=== PATIENT | female | born 2000 | race Caucasian/White ===

== ENCOUNTER 2023-10-18 22:27 | Emergency (ER) | payer SELFPAY ==
[2023-10-18 22:34] VITALS: BP 107/68
[2023-10-19] MEDS: DELTASONE 50 MG PO (00:09)
[2023-10-19] MEDS: BENADRYL 50 MG PO (00:09)
[2023-10-19] MEDS: PEPCID 20 MG PO (00:09)
--- NOTE | 2023-10-19 00:11 | ED.GENMED ---
History of Present Illness
General
Chief Complaint: Skin Problem
Source: patient
Exam Limitations: none
Time Seen by Provider: 10/18/23 23:12
Travel History
Have you had any contact with someone who has COVID-19?: No
Do you have any symptoms of coronavirus? Fever > 100 degrees, chills, cough, shortness of breath, sore throat, loss of taste or smell, muscle aches, or headache?: No
History of Present Illness
History of Present Illness:
Patient with hives x 2 to 3 days. Started Medrol Dosepak. Has not been on regular antihistamines. No obvious precipitating event. Had some mild shortness of breath 2 days ago that is resolved. Started cephalexin per urgent care yesterday.
Past History
Past History
ED Past Medical History: None
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
Social History
Tobacco: Non-smoker
Alcohol: None
Drug: None
Review of Systems
Review of Systems
All Other Systems: Not applicable
Constitutional: Denies fever
Respiratory: Denies cough
Phy Exam
Physical Exam
Physical Exam:
GENERAL: Alert and oriented in no apparent distress
EYE: Orbits normal.
NECK: Supple, no swelling
ENT: Pharynx without erythema. No drooling or stridor. Speech normal
CARDIAC: Regular rate and rhythm without any obvious murmurs.
LUNGS: Clear breath sounds,normal
ABDOMEN: Soft, without focal tenderness or distention
NEUROLOGICAL: Alert and oriented , grossly non-focal
SKIN: Warm and dry, large hives of the back chest and arms.
MUSCULOSKELETAL: No edema,no deformity.Good color
PSYCH: Normal and appropriate interaction.
Course
Orders/Labs/Results
Orders:
Orders
10/18/23 23:48
Diphenhydramine [Benadryl] 50 mg PO NOW STA
Famotidine [Pepcid] 20 mg PO NOW STA
Prednisone [Deltasone] 50 mg PO NOW STA
Vital Signs
Initial and Last Documented VS:
Initial Vital Signs
Temp Pulse Resp BP Pulse Ox
98.9 F 86 18 107/68 99
10/18/23 22:34 10/18/23 22:34 10/18/23 22:34 10/18/23 22:34 10/18/23 22:34
Last Documented Vital Signs
Temp Pulse Resp BP Pulse Ox
98.9 F 86 18 107/68 99
10/18/23 22:34 10/18/23 22:34 10/18/23 22:34 10/18/23 22:34 10/18/23 22:34
*Critical Care Note
Total Time (30-74mins, 75-104mins- exclusive of procedures): Not Applicable
Update Note
Update Note:
Patient needs H1 and H2 blockers and steroids. Has been on a low-dose of steroids has not been taking H1 blockers. No indication for antibiotics at this time
ED Attending Note
-
Portions of this chart may have been created with voice recognition software.� Occasional wrong word or��sound alike� substitutions may have occurred due to the inherent limitations of voice recognition software.
Discharge Plan
Departure
Patient Disposition: Home (Routine Discharge)
Date of Disposition: 10/19/23
Time of Disposition: 00:13
Patient with high blood pressure during this ER visit?: No
Discharge Problem:
Hives
Instructions: Hives, Allergic Reaction ED
Prescriptions:
New
prednisone 10 mg tablet
10 mg PO DAILY Qty: 20 0RF
Rx Instructions:
4 tablets day 1. Then 1 less tablet every other day until gone
Referrals:
[facility] [Provider Group] - Next open appointment
NONE,* [Family Provider] -
Activity Restrictions/Additional Instructions:
Take a Claritin a day for the next week
Take a Pepcid a day for the next week
Prednisone taper as directed
No reason to take the antibiotic at this time
Recheck with increased or persistent hives wheezing shortness of breath fever or any other concerning symptoms
Interventions
Interventions:
*Risk Screen - Suicide Last Done: 10/18/23 23:23
*General Assessment Last Done: 10/18/23 22:34
*Neglect/Abuse Screening Last Done: 10/18/23 23:23
ED- Fall Risk Assessment Last Done: 10/18/23 23:24
*ED COVID-19 Vaccine History Last Done: 10/18/23 23:23
*Nursing Disposition Last Done: 10/19/23 00:22
ED-Skin Assessment Last Done: 10/18/23 23:22
Discharge Date and Time
Discharge Date/Time: 10/19/23 00:24
Print Language: [id number]
== END 2023-10-19 00:24 | disposition home or self-care (01) ==
LOC: EMR 22:27
PROVIDERS: EMERGENCY PHYSICIAN Emergency Medicine
DX: L50.9 Urticaria, unspecified (principal)
CPT/HCPCS: 99282

== ENCOUNTER 2024-03-06 20:39 | Emergency (ER) | payer OTHER, SELFPAY ==
[2024-03-06 20:44] VITALS: BP 146/92
[2024-03-06 21:12] LABS: % Basophils 0.4 % (0-2); % Eosinophils 4.8 % (0-6); % Immature Granulocytes 0.5 % (0-0.5); % Lymphocytes 24.2 % (20.5-51.1); % Monocytes 9.5 % (1.7-9.3); % Neutrophils 60.6 % (42.2-75.2); Absolute Eosinophils 0.4 10^3/uL (0-0.7); Absolute Lymphocytes 2.1 10^3/uL (1.2-3.4); Absolute Monocytes 0.8 10^3/uL (0.1-0.6); Absolute Neutrophils 5.2 10^3/uL (1.4-6.5); Hematocrit 31.9 % (37.0-47.0); Hemoglobin 11.7 g/dL (12.0-16.0); Mean Corp Hgb Conc. 36.7 g/dL (33.0-37.0); Mean Corpuscular Volume 79.2 fL (81.0-99.0); Mean Platelet Volume 10.7 fL (7.4-10.4); Nucleated Red Blood Cells % 0 %; Platelet Count 242 10^3/uL (130-400); Red Blood Cell Count 4.03 10^6/uL (4.20-5.40); Red Cell Dist. Width 13.2 % (11.5-14.5); Urine Albumin Negative (Neg - Trace); Urine Bilirubin Negative (Negative); Urine Character Clear (Clear); Urine Color Yellow; Urine Glucose Negative (Negative); Urine Ketone Negative (Negative); Urine Leukocyte Negative (Negative); Urine Nitrite Negative (Negative); Urine Occult Blood Negative (Negative); Urine Urobilinogen Negative (Neg - 1+); White Blood Cell Count 8.5 10^3/uL (4.8-10.8)
[2024-03-06 21:54] LABS: ALT (SGPT) 20 U/L (0-35); AST (SGOT) 20 U/L (14-36); Albumin 4.3 g/dl (3.5-5.0); Alkaline Phosphatase 69 U/L (38-126); Blood Urea Nitrogen 7 mg/dl (7-17); Calcium 9.5 mg/dl (8.4-10.2); Carbon Dioxide 22 mmol/L (22-30); Chloride 103 mmol/L (98-107); Glucose 72 mg/dl (70-99); Lipase 84 U/L (23-300); Potassium 4.1 mmol/L (3.5-5.1); Sodium 139 mmol/L (135-145); Total Bilirubin 0.3 mg/dl (0.2-1.3); Total Protein 7.2 g/dl (6.3-8.2); eGFR > 60.00
--- NOTE | 2024-03-07 00:20 | ED.GENMED ---
History of Present Illness
<ANÍBAL Monet - Last Filed: 03/07/24 04:34>
General
Chief Complaint: Fever
Time Seen by Provider: 03/07/24 00:19
History of Present Illness
History of Present Illness:
A 23-year-old G1, P0 who is 11 weeks 6 days gestation and no past medical history presents to the emergency department for fever x 2 days. She states that on Monday she initially began to feel sick with fever, nasal congestion, nausea which is
improving, Cough, and intermittent vomiting. She also admits to a headache which was localized to her forehead and has been improving. She denies taking any medications to improve the fever or symptoms. She states her maximum temperature was on
Monday with a Tmax of 101 Fahrenheit. She is currently afebrile. She denies any dysuria, urinary frequency, urgency, flank pain, abdominal pain, diarrhea, vaginal bleeding.
She has no past medical history. She has a family history of hypothyroidism and diabetes. She is currently taking no medications. She is following up with [facility] with Dr. Xiang Olivarez.
Past History
<ANÍBAL Monet - Last Filed: 03/07/24 04:34>
Past History
ED Past Medical History: None
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
Social History
Tobacco: Non-smoker
Alcohol: None
Drug: None
Review of Systems
<ANÍBAL Monet - Last Filed: 03/07/24 04:34>
Review of Systems
Allergies reviewed?: Yes
All Other Systems: ROS reviewed and negative except as documented in HPI and ROS
Phy Exam
<ANÍBAL Monet - Last Filed: 03/07/24 04:34>
General Physical Exam
General Presentation: well appearing and no apparent distress
General age: appears stated age
General Skin: warm
General Habitus: normal and obese
General Mental: alert
General Hydration: appears well hydrated
ENT Exam
ENT Exam: TM's normal, pharynx normal and neck supple
Additional ENT: No lymphadenopathy noted.
Eye Exam
Eye Exam: PERRL
Cardiovascular Exam
Cardiovascular Exam: regular rate/rhythm, no edema, no gallop, no murmur and normal peripheral pulses
Pulmonary Exam
Pulmonary Exam: lungs clear, no respiratory distress, no rales, no crackles, no rhonchi and no wheezing
Gastrointestinal Exam
Gastrointestinal Exam: normal bowel sounds, non tender, soft and non distended
Neurological Exam
Neurological Exam: alert and oriented x3
Musculoskeletal Exam
Musculoskeletal Exam: full ROM
Skin Exam
Skin Exam: normal color and warm/dry
Psychiatric Exam
Psychiatric Exam: normal mood/affect
Course
<Pancho Grider, [facility] - Last Filed: 03/07/24 04:34>
Orders/Labs/Results
Orders:
Orders
03/06/24 21:02
Complete Blood Count/With Diff Urgent
Comprehensive Metabolic Panel Urgent
HCG, Beta Quantitative [Beta HCG Quantitative] Stat
Is this a screen?: No
Lipase Urgent
Urinalysis Reflex To Culture Urgent
Date Specimen was Collected: 03/06/24
Time Specimen was Collected: 20:48
03/07/24 00:41
COVID-19 Antigen Urgent
Source: Nasal Swab
Influenza A+B Rapid Molecular Urgent
MAGY Source: Nasal Swab
Specimen Description:
Abnormal Lab Results
03/06/24
21:02
RBC 4.03 L 10^6/uL
(4.20-5.40)
Hgb 11.7 L g/dL
(12.0-16.0)
Hct 31.9 L %
(37.0-47.0)
MCV 79.2 L fL
(81.0-99.0)
MPV 10.7 H fL
(7.4-10.4)
Absolute Monos (auto) 0.8 H 10^3/uL
(0.1-0.6)
Monocytes % 9.5 H %
(1.7-9.3)
Creatinine 0.5 L mg/dL
(0.6-1.0)
03/06/24 21:02
03/06/24 21:02
Vital Signs
Initial and Last Documented VS:
Initial Vital Signs
Temp Pulse Resp BP Pulse Ox
98.3 F 88 16 146/92 100
03/06/24 20:44 03/06/24 20:44 03/06/24 20:44 03/06/24 20:44 03/06/24 20:44
Last Documented Vital Signs
Temp Pulse Resp BP Pulse Ox
98.5 F 95 18 131/71 98
03/07/24 00:43 03/07/24 00:43 03/07/24 00:43 03/07/24 00:43 03/07/24 00:43
<Nida Valdez, DO - Last Filed: 03/07/24 01:36>
Orders/Labs/Results
Orders:
Orders
03/06/24 21:02
Complete Blood Count/With Diff Urgent
Comprehensive Metabolic Panel Urgent
HCG, Beta Quantitative [Beta HCG Quantitative] Stat
Is this a screen?: No
Lipase Urgent
Urinalysis Reflex To Culture Urgent
Date Specimen was Collected: 03/06/24
Time Specimen was Collected: 20:48
03/07/24 00:41
COVID-19 Antigen Urgent
Source: Nasal Swab
Influenza A+B Rapid Molecular Urgent
MAGY Source: Nasal Swab
Specimen Description:
Abnormal Lab Results
03/06/24
21:02
RBC 4.03 L 10^6/uL
(4.20-5.40)
Hgb 11.7 L g/dL
(12.0-16.0)
Hct 31.9 L %
(37.0-47.0)
MCV 79.2 L fL
(81.0-99.0)
MPV 10.7 H fL
(7.4-10.4)
Absolute Monos (auto) 0.8 H 10^3/uL
(0.1-0.6)
Monocytes % 9.5 H %
(1.7-9.3)
Creatinine 0.5 L mg/dL
(0.6-1.0)
03/06/24 21:02
03/06/24 21:02
Vital Signs
Initial and Last Documented VS:
Initial Vital Signs
Temp Pulse Resp BP Pulse Ox
98.3 F 88 16 146/92 100
03/06/24 20:44 03/06/24 20:44 03/06/24 20:44 03/06/24 20:44 03/06/24 20:44
Last Documented Vital Signs
Temp Pulse Resp BP Pulse Ox
98.5 F 95 18 131/71 98
03/07/24 00:43 03/07/24 00:43 03/07/24 00:43 03/07/24 00:43 03/07/24 00:43
<Pancho Grider [facility] - Last Filed: 03/07/24 04:34>
MDM/Problems Addressed
Differential Diagnosis Includes:
Unspecified viral syndrome, COVID-19, influenza A/B,
MDM/Problems Addressed:
Most likely etiology of her symptoms are due to an upper respiratory infection due to an unspecified virus. Rapid COVID, flu A/B are both negative.
<Nida Valdez DO - Last Filed: 03/07/24 01:36>
*Pulse Oximetry
Patient hypoxic: no
*Critical Care Note
Total Time (30-74mins, 75-104mins- exclusive of procedures): Not Applicable
ED Attending Note
<ANÍBAL Monet - Last Filed: 03/07/24 04:34>
-
Portions of this chart may have been created with voice recognition software.� Occasional wrong word or��sound alike� substitutions may have occurred due to the inherent limitations of voice recognition software.
<Nida Valdez DO - Last Filed: 03/07/24 01:36>
ED Attending Note
Patient seen and examined by attending physician: Yes
I performed the substantive portion of visit, reviewed & personally made and approve the management plan that is documented in note by myself or LYDIA.: Yes
ED Attending Note:
This is a 23-year-old female with no significant past medical history, 1 para 0, currently 12 weeks who presents with URI symptoms that initially began 2-1/2 days ago. She reports cough, nasal congestion, fever, sore throat,
headache. Tmax 3 days ago of 100.4 �F. Headache and sore throat has improved/resolved. She continues with moderate nasal congestion and was concerned today when she had a few episodes of vomiting.
She has been attempting to keep up with her fluids. She denies chest pain, no shortness of breath, no abdominal pain nor back pain, no diarrhea. She has had no vaginal discharge nor bleeding. No dysuria and urgency nor hematuria.
She has not been taking anything for her symptoms.
No recent travel.
No known close contacts with similar symptoms.
She was plan to have influenza vaccine today, March 07.
GENERAL: 23-year-old female appears her stated age, bright and alert, pleasant, appears in no acute distress. Exhibits a mildly nasal, stuffy voice. Respirations are easy and nonlabored. No significant cough appreciated during exam. She is
afebrile.
EYE: pupils equal and reactive. anicteric
NECK: Supple, nontender, no meningismus, no significant adenopathy.
ENT: posterior pharynx is without injection or edema, scant clear postnasal drip is noted, oral mucosa is moist. TM clear b/l, nares have mildly boggy pale blue turbinates with scant clear rhinorrhea.
CARDIAC: Regular rate and rhythm. no murmur.
LUNGS: Clear breath sounds bilaterally, no acute respiratory distress, no wheezes/rales/rhonchi
ABDOMEN: Soft, nondistended, without focal tenderness, no r/g, no cvat. normoactive BS.
NEUROLOGICAL: Alert and oriented x3, no focal neuro deficits. Gait is delong and steady.
SKIN: Warm and dry, normal color, skin intact. No rash.
MUSCULOSKELETAL: No C/C/E. peripheral pulses are full and equal b/l. No palpable tenderness.
PSYCH: Normal and appropriate interaction.
Patient exam consistent with URI that I suspect is viral.
Reports few episodes of vomiting but tolerating oral fluids and has had no accompanying abdominal pain.
Labs are reassuring, no evidence of dehydration or electrolyte abnormality.
Urinalysis is unremarkable, no evidence of UTI.
Will check COVID and influenza.
I highly suspect viral URI and overall symptoms appear to be improving as she is currently afebrile since arrival to the ED.
Recommend supportive measures, staying well-hydrated on a daily basis. May take Tylenol as needed for fever, aches.
Prompt follow-up with PCP for recheck.
Recommend holding off on influenza vaccination until fever free for a full 48 hours.
Discharge Plan
Departure
Patient Disposition: Home (Routine Discharge)
Date of Disposition: 03/07/24
Time of Disposition: 01:30
Patient with high blood pressure during this ER visit?: No
Condition: Good
Discharge Problem:
Acute upper respiratory infection
Instructions: Acute Nausea and Vomiting, Upper Respiratory Infection - Adult
Prescriptions:
No Action
prednisone 10 mg tablet
10 mg PO DAILY Qty: 20 0RF
Rx Instructions:
4 tablets day 1. Then 1 less tablet every other day until gone
Referrals:
Kike Parikh MD [Family Provider] - Call in 1-3 days for appt
Interventions
Interventions:
*Risk Screen - Suicide Last Done: 03/06/24 20:44
*General Assessment Last Done: 03/07/24 01:57
*Neglect/Abuse Screening Last Done: 03/06/24 20:44
ED- Fall Risk Assessment Last Done: 03/07/24 01:57
*ED COVID-19 Vaccine History Last Done: 03/07/24 01:57
*Nursing Disposition Last Done: 03/07/24 01:57
ED- Neurological Assessment Last Done: 03/07/24 00:45
ED-Skin Assessment Last Done: 03/07/24 00:45
Discharge Date and Time
Discharge Date/Time: 03/07/24 01:57
Print Language: COMORAN
[2024-03-07 00:43] VITALS: BP 131/71
[2024-03-07 01:08] LABS: COVID-19 Antigen Negative (Negative)
== END 2024-03-07 01:57 | disposition home or self-care (01) ==
LOC: EMR 20:39
PROVIDERS: Emergency Medicine; EMERGENCY PHYSICIAN Emergency Medicine; FAMILY PHYSICIAN Family Medicine
DX: O99.511 Diseases of the respiratory system complicating pregnancy, first trimester (principal); O21.9 Vomiting of pregnancy, unspecified; J06.9 Acute upper respiratory infection, unspecified; Z3A.11 11 weeks gestation of pregnancy; Z11.52 Encounter for screening for COVID-19
CPT/HCPCS: 99283; 80053; 81003; 83690; 84702; 85025; 87502; 87811